=== PATIENT | male | born 1970 | race Caucasian/White ===

== ENCOUNTER 2018-09-15 20:37 | Emergency (ER) | payer SELFPAY ==
[~2018-09-15] VITALS: Ht 177.8 cm; Wt 90.7 kg
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
[2018-09-15] MEDS ORDERED: LIDOCAINE/EPI 2% 1:100,00 (XYLOCAINE) 20 ML VIAL INJ ONE (21:15)
[2018-09-15 22:45] VITALS: BP 99/44
--- NOTE | 2018-09-16 06:08 | Diagnostic Imaging Report ---
PROCEDURE: CT head and CT cervical spine without contrast. TECHNIQUE: Multiple contiguous axial images were obtained through the brain and cervical spine without the use of intravenous contrast. Sagittal and coronal reformations through the cervical spine were then performed. INDICATION: Head injury. No prior studies are available for comparison. CT head: The ventricles and sulci are within normal limits. No sulcal effacement, midline shift or hemorrhage is detected. The cisterns are patent. Paranasal sinuses demonstrate mucosal thickening of the right maxillary sinus. There is mucosal thickening of the multiple ethmoid air cells. There appears to be a small skin defect in the left para midline frontal scalp. No depressed calvarial fractures are seen. IMPRESSION: 1. Left para-midline scalp laceration. 2. No acute intracranial process is detected. CT cervical spine: There is straightening of the normal cervical lordotic curvature. There is degenerative disc disease at C5-6 level with disc space narrowing and marginal spurring. No fracture is identified. Prevertebral tissues are within normal limits. The odontoid is intact IMPRESSION: Cervical spondylosis. No acute bony abnormality is detected. Dictated by: Dictated on workstation # [id number]
== END 2018-09-15 22:45 | disposition home or self-care (01) ==
LOC: ER 20:40
DX: S01.01XA Laceration without foreign body of scalp, initial encounter (principal); R40.2142 Coma scale, eyes open, spontaneous, at arrival to emergency department; R40.2252 Coma scale, best verbal response, oriented, at arrival to emergency department; R40.2362 Coma scale, best motor response, obeys commands, at arrival to emergency department; W22.8XXA Striking against or struck by other objects, initial encounter
CPT/HCPCS: 12014; 70450; 72125

== ENCOUNTER 2018-10-03 10:36 | Emergency (ER) | payer OTHER ==
[~2018-10-03] VITALS: Ht 170.2 cm; Wt 74.8 kg
[2018-10-03 10:50] VITALS: BP 145/78
== END 2018-10-03 10:50 | disposition home or self-care (01) ==
LOC: EDUNIT# 10:36 → ER 10:37
DX: S01.81XD Laceration without foreign body of other part of head, subsequent encounter (principal); X58.XXXD Exposure to other specified factors, subsequent encounter

== ENCOUNTER 2022-02-08 13:29 | Emergency (ER) | payer SELFPAY ==
[~2022-02-08] VITALS: Ht 178 cm; Wt 86.0 kg
[2022-02-08] MEDS ORDERED: KETOROLAC 60 MG/2 ML VIAL IM ONE (14:30)
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
--- NOTE | 2022-02-08 15:07 | Diagnostic Imaging Report ---
CHEST 1 VIEW, AP/PA ONLY INDICATION: Cough. COMPARISON: None available. FINDINGS: Right basilar consolidations are present. Small right pleural effusion. No pneumothorax. Heart is normal in size. IMPRESSION: 1. Right basilar consolidations are of unknown chronicity. In the acute setting, this could be due to pneumonia. Alternatively, this may be chronic in nature. 2. Small right pleural effusion could be chronic in nature. 3. Advise followup PA and lateral chest radiographs in four weeks after appropriate medical management to ensure resolution. Dictated by: Dictated on workstation # [id number]
[2022-02-08 15:24] LABS: BASOPHILS % (AUTO) 0 % (0-10); EOSINOPHILS # (AUTO) 0.1 10^3/uL (0.0-0.3); EOSINOPHILS % (AUTO) 1 % (0-10); HEMATOCRIT 43 % (40-54); HEMOGLOBIN 15.1 g/dL (13.3-17.7); LYMPHOCYTES % (AUTO) 20 % (12-44); MEAN CORPUSCULAR HEMOGLOBIN 35 pg (25-34); MEAN CORPUSCULAR HGB CONC 35 g/dL (32-36); MEAN CORPUSCULAR VOLUME 100 fL (80-99); MEAN PLATELET VOLUME 9.8 fL (9.0-12.2); MONOCYTES # (AUTO) 0.9 X 10^3 (0.0-1.0); MONOCYTES % (AUTO) 9 % (0-12); NEUTROPHILS % (AUTO) 69 % (42-75); PLATELET COUNT 249 10^3/uL (130-400)
[2022-02-08 15:30] LABS: ALBUMIN 3.9 GM/DL (3.2-4.5)
[2022-02-08 15:31] LABS: POTASSIUM 3.7 MMOL/L (3.6-5.0)
[2022-02-08 15:32] LABS: CALCIUM 9.7 MG/DL (8.5-10.1)
[2022-02-08 15:33] LABS: TOTAL PROTEIN 7.4 GM/DL (6.4-8.2)
[2022-02-08 15:35] LABS: BILIRUBIN,TOTAL 0.6 MG/DL (0.1-1.0)
[2022-02-08 15:37] LABS: CREATININE SERUM 0.7 MG/DL (0.60-1.30)
[2022-02-08] MEDS ORDERED: DOXY100T2 PO (15:47)
[2022-02-08] MEDS ORDERED: METH4TAB10 PO (15:47)
[2022-02-08 15:59] VITALS: BP 138/90
== END 2022-02-08 15:59 | disposition home or self-care (01) ==
LOC: EDUNIT# 13:29 → ER 13:30
DX: U07.1 COVID-19 (principal); F17.210 Nicotine dependence, cigarettes, uncomplicated
CPT/HCPCS: 36415; 71045; 80053; 85025; 87636